=== PATIENT | male | born 2000 | race Caucasian/White ===

== ENCOUNTER 2022-08-25 20:23 | Emergency (ER) | payer OTHER ==
[2022-08-25] MEDS ORDERED: methylPREDNISolone Sod Succ/PF 125 MG/2 ML VIAL ONE (20:55)
[2022-08-25] MEDS ORDERED: Famotidine/PF 20 mg/2ml Vial ONE (20:55)
== END 2022-08-25 22:41 | disposition home or self-care (01) ==
LOC: CSHERS 20:23
DX: T78.40XA Allergy, unspecified, initial encounter (principal)
CPT/HCPCS: 96374; 96375; J2930; S0028

== ENCOUNTER 2022-08-26 13:02 | Emergency (ER) | payer OTHER ==
[2022-08-26] MEDS ORDERED: Dexamethasone 10 MG/ML VIAL ONE (13:30)
[2022-08-26] MEDS ORDERED: Famotidine 20 MG TAB PO SCH (13:45)
== END 2022-08-26 15:02 | disposition home or self-care (01) ==
LOC: CSHERS 13:02
DX: L50.0 Allergic urticaria (principal)
CPT/HCPCS: 99283; J1100